=== PATIENT | male | born 1965 | race Caucasian/White ===

== ENCOUNTER 2016-08-24 10:12 | Emergency (ER) | payer SELFPAY ==
[~2016-08-24] VITALS: Ht 185.4 cm; Wt 71.0 kg
[2016-08-24 10:16] VITALS: BP 115/83
[2016-08-24] MEDS ORDERED: ONDANSETRON ODT 4 MG ONE (10:57)
[2016-08-24] MEDS ORDERED: HYDROmorphone 1 MG/ML, 1ML ONE (10:57)
[2016-08-24] MEDS ORDERED: HYDROmorphone 1 MG/ML, 1ML IM ONE (11:00)
[2016-08-24] MEDS ORDERED: ONDANSETRON ODT 4 MG PO ONE (11:00)
== END 2016-08-24 11:22 | disposition home or self-care (01) ==
LOC: ED 11:16
DX: G89.29 Other chronic pain (principal); M54.5 Low back pain
CPT/HCPCS: 96372; 99283; J1170; Q0162